=== PATIENT | male | born 1970 | race Caucasian/White ===

== ENCOUNTER 2016-04-23 15:50 | Emergency (ER) | payer OTHER ==
[~2016-04-23] VITALS: Ht 177.8 cm; Wt 150.0 kg
[2016-04-23 15:52] VITALS: BP 169/80; PULSE 94; RESP 14; TEMP 98; O2SAT 93
[2016-04-23] MEDS ORDERED: SODIUM CHLORIDE 0.9% FLUSH 5 ML FLUSH IVF PRN (17:00)
[2016-04-23] MEDS ORDERED: ASPIRIN 81 MG CHEW TAB PO ONE (17:00)
[2016-04-23 17:09] LABS: AUTOMATED NEUTROPHIL # 4.7 TH/MM3 (1.8-7.7); BASOPHIL % 0.7 % (0.0-2.0); EOSINOPHIL # 0.1 TH/MM3 (0-0.4); EOSINOPHIL % 1.5 % (0.0-4.0); HEMATOCRIT 41.9 % (39.0-51.0); HEMO FLAGS DIFF FINAL; LYMPH % 17.9 % (9.0-44.0); LYMPHOCYTE # 1.2 TH/MM3 (1.0-4.8); MEAN CELL VOLUME 89.8 FL (80.0-100.0); MEAN CORPUSCULAR HGB CONC 35.7 % (32.0-36.0); MONO % 8.9 % (0.0-8.0); PLATELET COUNT 229 TH/MM3 (150-450); RED BLOOD COUNT 4.67 MIL/MM3 (4.50-5.90); RED CELL DISTRIBUTION WIDTH 13.8 % (11.6-17.2); WHITE BLOOD COUNT 6.7 TH/MM3 (4.0-11.0)
[2016-04-23 17:19] LABS: APTT (PATIENT) 28.7 SEC (24.3-30.1); PROTHROMBIN TIME - PATIENT 10.7 SEC (9.8-11.6)
--- NOTE | 2016-04-23 17:19 | RADRPT ---
EXAM DATE/TIME: 04/23/2016 17:09 [place] COMPARISON: No previous studies available for comparison. INDICATIONS : Cough, congestion, and chest pain. MEDICAL HISTORY : None. SURGICAL HISTORY : None. ENCOUNTER: Initial ACUITY: 4 - 6 days PAIN SCORE: 2/10 LOCATION: Bilateral chest FINDINGS: A single view of the chest demonstrates the lungs to be symmetrically aerated without evidence of mas s, infiltrate or effusion. The cardiomediastinal contours are unremarkable. Osseous structures are intact. CONCLUSION: No acute disease. Dominic Herbert MD on April 23, 2016 at 17:17 Board Certified Radiologist. This report was verified electronically.
[2016-04-23 17:41] LABS: ALT (GPT) 40 U/L (12-78); ANION GAP 8 MEQ/L (5-15); AST (GOT) 24 U/L (15-37); BICARBONATE 27.5 MEQ/L (21.0-32.0); BLOOD UREA NITROGEN 12 MG/DL (7-18); CHLORIDE 105 MEQ/L (98-107); GLOMERULAR FILTRATION RATE 104 ML/MIN (>89); MAGNESIUM 2.1 MG/DL (1.5-2.5); POTASSIUM 4.2 MEQ/L (3.5-5.1); SODIUM (NA) 140 MEQ/L (136-145)
[2016-04-23 17:44] LABS: ALKALINE PHOSPHATASE 85 U/L (45-117); CREATINE KINASE 341 U/L (39-308); TOTAL BILIRUBIN ADULT 0.3 MG/DL (0.2-1.0)
[2016-04-23 17:56] LABS: CKMB 3.8 NG/ML (0.5-3.6)
[2016-04-23] MEDS ORDERED: methylPREDNISolone SOD SUCC 125 MG/2 ML VIAL IVP ONE (18:00)
[2016-04-23] MEDS: RESP: ALBUTEROL 2.5 MG/IPRATROPIUM 0.5 MG NEB (SCH) INH (18:08)
[2016-04-23 18:09] VITALS: O2SAT 93
[2016-04-23] MEDS ORDERED: VENTAER INH (18:30)
[2016-04-23] MEDS ORDERED: PRED50 PO (18:30)
--- NOTE | 2016-04-23 18:31 | PD ---
HPI Chief Complaint: Chest Pain Time Seen by Provider: 17:00 Travel History International Travel<30 days: No Contact w/Intl Traveler<30days: No Traveled to known affect area: No History of Present Illness HPI Patient is a 45-year-old male who presents emergency department for evaluation of brief chest pressure and tightness accompanied by dizziness, diaphoresis. Patient states that he initially started with cold and flu symptoms on Friday , he reports feeling well this morning but as he was driving he had a brief episode of chest pain. Patient is currently pain-free. Patient has a history of hypertension, obesity, long-term tobacco use. He reports a negative stress test one year ago. [facility] Past Medical History Chest Pain: Yes COPD: Yes Diabetes: Yes Hypertension: Yes Medical other: Yes (obesity) Family History Family Myocardial Infarction: Yes Social History Alcohol Use: Yes Tobacco Use: Yes Substance Use: No Allergies-Medications (Allergen,Severity, Reaction): Coded Allergies: No Known Allergies (Unverified , 04/23/16) Review of Systems Except as stated in HPI: all other systems reviewed are Neg General / Constitutional: No: Fever, Chills HENT: Positive: Congestion (improving) Cardiovascular: Positive: Chest Pain or Discomfort, Diaphoresis Respiratory: No: Shortness of Breath Gastrointestinal: No: Nausea, Vomiting, Diarrhea, Abdominal Pain Neurologic: Positive: Dizziness Physical Exam Narrative GENERAL: Obese, well-developed, alert male. Resting comfortably in no acute distress. SKIN: Warm and dry. HEAD: Atraumatic. Normocephalic. EYES: Pupils equal and round. No scleral icterus. No injection or drainage. ENT: No nasal bleeding or discharge. Mucous membranes pink and moist. NECK: Trachea midline. No JVD. CARDIOVASCULAR: Regular rate and rhythm. No murmur appreciated. RESPIRATORY: No accessory muscle use. Expiratory wheezing noted in bilateral lower lung muller. No increased work of breathing, no nasal flaring, no retractions noted. GASTROINTESTINAL: Abdomen soft, non-tender, nondistended. Hepatic and splenic margins not palpable. MUSCULOSKELETAL: No obvious deformities. No clubbing. No cyanosis. No edema. NEUROLOGICAL: Awake and alert. No obvious cranial nerve deficits. Motor grossly within normal limits. Normal speech. PSYCHIATRIC: Appropriate mood and affect; insight and judgment normal. Data Data Last Documented VS Vital Signs Date Time Temp Pulse Resp B/P Pulse Ox O2 Delivery O2 Flow Rate FiO2 1/24/17 18:09 93 21 04/23/16 15:52 98.0 94 14 169/80 Room Air Orders Electrocardiogram (04/23/16 16:52) Ckmb (Isoenzyme) Profile (04/23/16 16:52) Complete Blood Count With Diff (04/23/16 16:52) Comprehensive Metabolic Panel (04/23/16 16:52) Magnesium (Mg) (04/23/16 16:52) Prothrombin Time / Inr (Pt) (04/23/16 16:52) Act Partial Throm Time (Ptt) (04/23/16 16:52) Troponin I (04/23/16 16:52) Ecg Monitoring (04/23/16 16:52) Bilateral Bp Monitoring (04/23/16 16:52) Iv Access Insert/Monitor (04/23/16 16:52) Oximetry (04/23/16 16:52) Oxygen Administration (04/23/16 16:52) Aspirin Chew (Aspirin Chew) (04/23/16 17:00) Sodium Chloride 0.9% Flush (Ns Flush) (04/23/16 17:00) Chest, Single Ap (04/23/16 ) CKMB (04/23/16 17:00) CKMB% (04/23/16 17:00) Methylprednisolone So Succ Inj (Solumedr (04/23/16 18:00) Albuterol-Ipratropium Neb (Duoneb Neb) (04/23/16 18:00) Labs Laboratory Tests Test 04/23/16 17:00 White Blood Count 6.7 TH/MM3 Red Blood Count 4.67 MIL/MM3 Hemoglobin 14.9 GM/DL Hematocrit 41.9 % Mean Corpuscular Volume 89.8 FL Mean Corpuscular Hemoglobin 32.0 PG Mean Corpuscular Hemoglobin 35.7 % Concent Red Cell Distribution Width 13.8 % Platelet Count 229 TH/MM3 Mean Platelet Volume 7.8 FL Neutrophils (%) (Auto) 71.0 % Lymphocytes (%) (Auto) 17.9 % Monocytes (%) (Auto) 8.9 % Eosinophils (%) (Auto) 1.5 % Basophils (%) (Auto) 0.7 % Neutrophils # (Auto) 4.7 TH/MM3 Lymphocytes # (Auto) 1.2 TH/MM3 Monocytes # (Auto) 0.6 TH/MM3 Eosinophils # (Auto) 0.1 TH/MM3 Basophils # (Auto) 0.0 TH/MM3 CBC Comment DIFF FINAL Differential Comment Prothrombin Time 10.7 SEC Prothromb Time International 1.0 RATIO Ratio Activated Partial 28.7 SEC Thromboplast Time Sodium Level 140 MEQ/L Potassium Level 4.2 MEQ/L Chloride Level 105 MEQ/L Carbon Dioxide Level 27.5 MEQ/L Anion Gap 8 MEQ/L Blood Urea Nitrogen 12 MG/DL Creatinine 0.81 MG/DL Estimat Glomerular Filtration 104 ML/MIN Rate Random Glucose 99 MG/DL Calcium Level 8.8 MG/DL Magnesium Level 2.1 MG/DL Total Bilirubin 0.3 MG/DL Aspartate Amino Transf 24 U/L (AST/SGOT) Alanine Aminotransferase 40 U/L (ALT/SGPT) Alkaline Phosphatase 85 U/L Total Creatine Kinase 341 U/L Creatine Kinase MB 3.8 NG/ML Creatine Kinase MB % 1.1 % Troponin I LESS THAN 0.02 NG/ML Total Protein 7.1 GM/DL Albumin 3.8 GM/DL MDM Medical Decision Making Medical Screen Exam Complete: Yes Emergency Medical Condition: Yes Interpretation(s) Last Impressions Chest X-Ray 04/23/16 0000 Signed Impressions: Service Date/Time: Saturday, April 23, 2016 17:09 - CONCLUSION: No acute disease. Dominic Herbert MD Laboratory Tests Test 04/23/16 17:00 White Blood Count 6.7 TH/MM3 Red Blood Count 4.67 MIL/MM3 Hemoglobin 14.9 GM/DL Hematocrit 41.9 % Mean Corpuscular Volume 89.8 FL Mean Corpuscular Hemoglobin 32.0 PG Mean Corpuscular Hemoglobin 35.7 % Concent Red Cell Distribution Width 13.8 % Platelet Count 229 TH/MM3 Mean Platelet Volume 7.8 FL Neutrophils (%) (Auto) 71.0 % Lymphocytes (%) (Auto) 17.9 % Monocytes (%) (Auto) 8.9 % Eosinophils (%) (Auto) 1.5 % Basophils (%) (Auto) 0.7 % Neutrophils # (Auto) 4.7 TH/MM3 Lymphocytes # (Auto) 1.2 TH/MM3 Monocytes # (Auto) 0.6 TH/MM3 Eosinophils # (Auto) 0.1 TH/MM3 Basophils # (Auto) 0.0 TH/MM3 CBC Comment DIFF FINAL Differential Comment Prothrombin Time 10.7 SEC Prothromb Time International 1.0 RATIO Ratio Activated Partial 28.7 SEC Thromboplast Time Sodium Level 140 MEQ/L Potassium Level 4.2 MEQ/L Chloride Level 105 MEQ/L Carbon Dioxide Level 27.5 MEQ/L Anion Gap 8 MEQ/L Blood Urea Nitrogen 12 MG/DL Creatinine 0.81 MG/DL Estimat Glomerular Filtration 104 ML/MIN Rate Random Glucose 99 MG/DL Calcium Level 8.8 MG/DL Magnesium Level 2.1 MG/DL Total Bilirubin 0.3 MG/DL Aspartate Amino Transf 24 U/L (AST/SGOT) Alanine Aminotransferase 40 U/L (ALT/SGPT) Alkaline Phosphatase 85 U/L Total Creatine Kinase 341 U/L Creatine Kinase MB 3.8 NG/ML Creatine Kinase MB % 1.1 % Troponin I LESS THAN 0.02 NG/ML Total Protein 7.1 GM/DL Albumin 3.8 GM/DL Vital Signs Date Time Temp Pulse Resp B/P Pulse Ox O2 Delivery O2 Flow Rate FiO2 04/23/16 18:09 93 21 04/23/16 15:52 98.0 94 14 169/80 93 Room Air Differential Diagnosis Chest wall pain versus cardiac arrhythmia versus acute AL versus pneumonia versus bronchitis versus COPD exacerbation Narrative Course Patient is a 45-year-old male who presents emergency Department with a complaint of chest pain. Pain was brief and lasted approximately 1 minute, patient only experienced one episode. Patient initially presented to triage complaining of cold symptoms however upon further interview patient then told us about his chest pain. CBC, chemistry are unremarkable. First set of cardiac enzymes are negative. EKG shows normal sinus rhythm with a rate of 82. Patient was given DuoNeb and IV Solu-Medrol in the emergency department. He reports improvement in his symptoms. Patient also stated that he just completed a course of antibiotics approximately one week ago. He is encouraged to continue with his Symbicort and rescue inhaler as needed. He is encouraged follow-up with his primary doctor. Discussed with my attending physician Dr. Montiel who agreed that discharge home if enzymes were negative 1 set is appropriate to patient's brief duration of chest tightness and prompt resolution. Patient was encouraged to return to emergency department for any new or worsening symptoms. Patient is stable for discharge. Diagnosis Primary Impression: Chest pain Qualified Code: R07.9 - Chest pain, unspecified type Additional Impression: COPD exacerbation Referrals: Primary Care Physician Patient Instructions: COPD (Chronic Obstructive Pulmonary Disease) (ED), Chest Pain (GEN), General Instructions Additional Instructions: Follow-up with your primary doctor Return to emergency department immediately for any new or worsening symptoms Continue Symbicort and rescue inhaler as needed and as prescribed Med/Other Pt SpecificInfo: Prescription(s) given Scripts Albuterol 18 GM Inh (Ventolin Hfa 18 GM Inh)90 Mcg/Act Aer2 Puff INH Q4-6H PRN ( SHORTNESS OF BREATH) #1 INHALER Ref 0 Prov:Delia Chisholm 04/23/16 Prednisone 50 Mg Tab50 Mg PO DAILY #5 TAB Ref 0 Prov:Delia Chisholm 04/23/16 Disposition: 01 DISCHARGE HOME Condition: Stable Delia Chisholm Apr 23, 2016 18:30
--- NOTE | 2016-04-23 19:14 | EKG ---
Date Performed: 04/23/2016 Time Performed: 17:25:59 PTAGE: 45 years EKG: Sinus rhythm NORMAL ECG NO PREVIOUS TRACING DOCTOR: Luis Carlos Choi Interpretating Date/Time 04/23/2016 19:12:55
== END 2016-04-23 18:58 | disposition home or self-care (01) ==
LOC: NEPB 15:50
DX: R07.89 Other chest pain (principal); J44.1 Chronic obstructive pulmonary disease with (acute) exacerbation; I10 Essential (primary) hypertension; E66.9 Obesity, unspecified; J44.9 Chronic obstructive pulmonary disease, unspecified; Z72.0 Tobacco use
CPT/HCPCS: 71010; 80053; 82550; 82552; 83735; 84484; 85025; 85610; 85730; 93005; 94640; 94664; 96374; 99285; J2930